=== PATIENT | female | born 1970 | race Caucasian/White ===

== ENCOUNTER 2023-01-11 06:43 | Day surgery (SDC) | payer OTHER ==
[~2023-01-11] VITALS: Ht 152.4 cm; Wt 66.7 kg
[2023-01-11] MEDS ORDERED: diphenhydrAMINE 50 MG/ML VIAL ONE (07:37)
[2023-01-11] MEDS ORDERED: fentaNYL citrate 0.05 MG/ML VIAL ONE (07:38)
[2023-01-11] MEDS ORDERED: MIDAZOLAM 2 MG/2 ML VIAL ONE (07:38)
[2023-01-11] MEDS ORDERED: LIDOCAINE 2% 100 MG/5 ML UJET TP ONE (07:38)
[2023-01-11] MEDS ORDERED: fentaNYL citrate 0.05 MG/ML VIAL IVP ONE (08:10)
[2023-01-11] MEDS ORDERED: MIDAZOLAM 2 MG/2 ML VIAL IVP ONE (08:10)
== END 2023-01-11 09:35 | disposition home or self-care (01) ==
LOC: MDS 06:43 → MMU 06:44 → MDS 09:35 → EDBD 13:00
PROVIDERS: ATTEND Internal Medicine Gastroenterology
DX: Z12.11 Encounter for screening for malignant neoplasm of colon (principal); E11.9 Type 2 diabetes mellitus without complications
CPT/HCPCS: 45378; J2250; J3010; J1200